=== PATIENT | female | born 1935 | race Caucasian/White ===

== ENCOUNTER 2018-11-14 09:50 | Inpatient (IN) | payer MEDICARE, OTHER, SELFPAY ==
[2018-11-08 13:51] VITALS: BMI 20.7
[2018-11-14] VITALS (14 sets, daily range): BP systolic 63–161; BP diastolic 32–98; PULSE 71–99; RESP 12–16; TEMP 35.8–37; O2SAT 97–100; BMI 20.7
[2018-11-14] MEDS: ACETAMINOPHEN 325 MG TABLET 975 MG PO (10:49)
[2018-11-14] MEDS: PREGABALIN 75 MG CAPSULE PO (10:50)
[2018-11-14] MEDS: CELECOXIB 200 MG CAPSULE PO (10:50)
--- NOTE | 2018-11-14 11:31 | PM.PREOP ---
Pre-operative Note Interval Note History & Physical reviewed/Exam performed by Physician: Yes Changes to H&P: No
[2018-11-14] MEDS: CEFAZOLIN 1 GM VIAL IV (11:45)
--- NOTE | 2018-11-14 12:15 | DI.RAD.S_ITS ---
PROCEDURE: XR PELVIS 1-2V INDICATIONS: Postop left total hip TECHNIQUE: 1 view of the lower pelvis acquired. COMPARISON: None. FINDINGS: Bones: Patient is status post left hip arthroplasty, with hardware components in expected positions. The hip joint appears congruent. The visualized bony structures appear intact. Soft tissues: Overlying postoperative changes are noted. No suspicious soft tissue densities. IMPRESSION: Post left total hip arthroplasty with anatomic left hip alignment. Dictated by: Garett Valdivia M.D. on 11/14/2018 at 16:17 Approved by: Garett Valdivia M.D. on 11/14/2018 at 16:18
--- NOTE | 2018-11-14 12:23 | SUR.OPER ---
Right Lateral on padded OR bed. Gel axillary roll. Arms secured on padded armboard with pillow supporting top arm. Padded hip positioner braces x4 - anterior and posterior chest and pelvis. Additional gel pad used anterior pelvis. Gel pad under bottom leg from knee to foot and secured with tape over sheet.
[2018-11-14] MEDS: BUPIVACAINE 0.25% W/ EPI VIAL 50 ML INJ (12:27)
[2018-11-14] MEDS: TRANEXAMIC ACID 1,000 MG VIAL 1000 MG IV ×2 (12:29→13:00)
[2018-11-14] MEDS: LACTATED RINGERS 1,000 ML 42 ML IV (12:51)
--- NOTE | 2018-11-14 13:24 | PM.OP.1 ---
Operative Date/Time/Diagnoses Date of procedure: 11/14/18 Time of procedure: 13:24 Pre-op diagnosis: Left hip degenerative joint disease Post-op diagnosis: same Procedure & Clinicians Procedure: Left total hip arthroplasty (CPT code 79034 with assistant foreman) Same procedure as scheduled: Yes Indications: Patient is an 83-year-old female with severe left hip DJD. The patient has pain with activities and at rest, limited ambulation and activity tolerance, difficulties with ADLs, and failure of conservative treatment. We have discussed the nature of condition, treatment options, risks and benefits, and patient elects to proceed with total hip arthroplasty and gives informed consent. Surgeon: Thom Villela Inner Tube Tuber Machine Operator: Moi Alonzo Anesthesia Type: General and Spinal Operative Notes Closure Type: primary Specimen(s): none sent Prosthetic devices, grafts, tissues, transplants, or devices: Acetabulum: Feng [employer] Nephew R3 acetabular component size 50 mm Femoral component: Feng [employer]hew Anthology stem size 5 with standard offset Femoral head: 32 mm + 0 cobalt chrome Estimated Blood Loss (mL): 100 Blood products transfused: none Procedure in detail: After satisfaction induction of anesthetic, and administration of IV antibiotics, the patient was positioned in the lateral decubitus position with all bony prominences well padded and pelvic position secured using a hip test preparation tutor positioning device. Left hip and lower extremity prepped and draped in the usual sterile fashion, 1st dose of intravenous tranexamic acid was administered, then a longitudinal incision was created centered over the greater trochanter and carried sharply through the skin and subcutaneous tissues down to the fascia amelia which was divided longitudinally and retracted with a Charnley retractor. External rotators visualize, cut, tagged, and retracted posteriorly, then the capsule was cut in a T-type fashion with the corners tagged and retracted. Hip was dislocated and femoral neck cut made according to preoperative templating. Acetabular retractors then placed, and the acetabular labrum and osteophytes were excised. The acetabulum was then sequentially reamed to 49 mm with an excellent circumferential ream and fit with the trial. The trial component was removed and a permanent size 50 mm Feng and Nephew R3 acetabular component was selected, positioned, and impacted with satisfactory position and fixation achieved. Permanent liner was then inserted with the elevated lip directed posteriorly. Soft tissue then removed off the lateral femoral neck in the lateral neck was entered using a box osteotome. T-handled reamers placed down the canal followed by sequential broaching to 5 with the final broach left in place for trial reduction which demonstrated excellent leg length, range of motion, and stability characteristics with a 32 mm +0 trial ball. The trial and broach were removed, and a permanent size 5 Feng and Nephew Anthology stem was selected and inserted with excellent position and fixation achieved. Another trial reduction yielded the above characteristics so the trial ball was exchanged for a permanent 32 mm +0 cobalt chrome ball. The hip was irrigated and reduced and excellent leg length range of motion and stability characteristics were achieved and maintained. Periarticular tissues were infiltrated with Marcaine. The hip was copiously irrigated, and the capsule repaired with #2 Ethibond, and the piriformis was repaired back to the greater trochanter with the same. Fascia amelia closed with interrupted #1 Ethibond sutures, and the subcutaneous tissues were closed in 2 layers of 0 Vicryl and 2 0 Vicryl. Skin was closed with lazaro and sterile dressings applied. Second dose of tranexamic acid was administered intravenously, and the anesthetic was terminated. Complications: none Condition: stable Disposition: PACU Plan for aftercare: Patient will be admitted to the acute care [facility], and anticipate discharge on postop day 1 or 2 with follow-up in office in 10-14 days. Outpatient physical therapy will be arranged and patient will continue to observe posterior hip precautions. Patient will continue use of postoperative Lovenox for 10 days postop.
--- NOTE | 2018-11-14 13:27 | P.OP_ITS ---
Operative Date/Time/Diagnoses Date of procedure: 11/14/18 Time of procedure: 13:24 Pre-op diagnosis: Left hip degenerative joint disease Post-op diagnosis: same Procedure & Clinicians Procedure: Left total hip arthroplasty (CPT code 62122 with marketing assistant manager) Same procedure as scheduled: Yes Indications: Patient is an 83-year-old female with severe left hip DJD. The patient has pain with activities and at rest, limited ambulation and activity tolerance, difficulties with ADLs, and failure of conservative treatment. We have discussed the nature of condition, treatment options, risks and benefits, and patient elects to proceed with total hip arthroplasty and gives informed consent. Surgeon: Thom Villela Boat Driver: Moi Alonzo Anesthesia Type: General and Spinal Operative Notes Closure Type: primary Specimen(s): none sent Prosthetic devices, grafts, tissues, transplants, or devices: Acetabulum: Feng [employer] Nephew R3 acetabular component size 50 mm Femoral component: Feng [employer] Nephew Anthology stem size 5 with standard offset Femoral head: 32 mm + 0 cobalt chrome Estimated Blood Loss (mL): 100 Blood products transfused: none Procedure in detail: After satisfaction induction of anesthetic, and administration of IV antibiotics, the patient was positioned in the lateral decubitus position with all bony prominences well padded and pelvic position secured using a hip licensed physical therapist positioning device. Left hip and lower extremity prepped and draped in the usual sterile fashion, 1st dose of intravenous tranexamic acid was administered, then a longitudinal incision was created centered over the greater trochanter and carried sharply through the skin and subcutaneous tissues down to the fascia amelia which was divided longitudinally and retracted with a Charnley retractor. External rotators visualize, cut, tagged, and retracted posteriorly, then the capsule was cut in a T-type fashion with the corners tagged and retracted. Hip was dislocated and femoral neck cut made according to preoperative templating. Acetabular retractors then placed, and the acetabular labrum and osteophytes were excised. The acetabulum was then sequentially reamed to 49 mm with an excellent circumferential ream and fit with the trial. The trial component was removed and a permanent size 50 mm Feng and Nephew R3 acetabular component was selected, positioned, and impacted with satisfactory position and fixation achieved. Permanent liner was then inserted with the elevated lip directed posteriorly. Soft tissue then removed off the lateral femoral neck in the lateral neck was entered using a box osteotome. T- handled reamers placed down the canal followed by sequential broaching to 5 with the final broach left in place for trial reduction which demonstrated excellent leg length, range of motion, and stability characteristics with a 32 mm +0 trial ball. The trial and broach were removed, and a permanent size 5 Feng and Nephew Anthology stem was selected and inserted with excellent position and fixation achieved. Another trial reduction yielded the above characteristics so the trial ball was exchanged for a permanent 32 mm +0 cobalt chrome ball. The hip was irrigated and reduced and excellent leg length range of motion and stability characteristics were achieved and maintained. Periarticular tissues were infiltrated with Marcaine. The hip was copiously irrigated, and the capsule repaired with #2 Ethibond, and the piriformis was repaired back to the greater trochanter with the same. Fascia amelia closed with interrupted #1 Ethibond sutures, and the subcutaneous tissues were closed in 2 layers of 0 Vicryl and 2 0 Vicryl. Skin was closed with lazaro and sterile dressings applied. Second dose of tranexamic acid was administered intravenously, and the anesthetic was terminated. Complications: none Condition: stable Disposition: PACU Plan for aftercare: Patient will be admitted to the acute care [facility], and anticipate discharge on postop day 1 or 2 with follow-up in office in 10-14 days. Outpatient physical therapy will be arranged and patient will continue to observe posterior hip precautions. Patient will continue use of postoperative Lovenox for 10 days postop.
--- NOTE | 2018-11-14 13:49 | SUR.PHASEI ---
Awaiting call back from RN who is unavaialble at this time. Pt comfortable altho appears slightly tremulous. She denies being cold or shivery. Spinal dropping slowly.
[2018-11-14] MEDS: LACTATED RINGERS 1,000 ML 125 ML IV ×2 (14:47→23:21)
--- NOTE | 2018-11-14 15:45 | PM.CHAP ---
visit with patient this afternoon. In good spirits after surgery, looking forward to going home soon.
--- NOTE | 2018-11-14 17:18 | PT.IIE ---
Current Diagnoses Unilateral primary osteoarthritis, left hip (11/14/18) Trochanteric bursitis, left hip (11/14/18) Surgery Performed Operation Date: 11/14/18 12:15 Actual Procedures p Total Hip Arthroplasty(Left) - Thom Villela MD Surgical History (Last Updated 11/08/18 @ 14:13 by Tati Christopher RN) Hx of laminectomy (Acute) Hx of tubal ligation (Acute) Status post LASIK surgery of both eyes (Acute) Status post cataract extraction of both eyes with insertion of intraocular lens (Acute) Medical History (Last Updated 11/08/18 @ 14:13 by Tati Christopher RN) IBS (irritable bowel syndrome) (Acute) Cancer of left breast (Acute 11/15/97) GERD (gastroesophageal reflux disease) (Acute) HTN (hypertension) (Acute) Hip bursitis, left (Acute) Humerus fracture (Acute) Migraines (Acute) Osteoarthritis (Acute) PSVT (paroxysmal supraventricular tachycardia) (Acute) Skin cancer (Acute) Thyroid cancer (Acute ~1984) Vaginal pessary present (Acute) Physical Therapy Inpatient Evaluation/Re-Eval M1 PT/OT-IP Prior Functional Status Start: 11/14/18 16:41 Freq: NEEDED Status: Active Protocol: Document 11/14/18 16:00 (Rec: 11/14/18 17:18 [email or web address]) Medical Review Prior Functional Status Medical History Reviewed Yes Communication No deficits noted Mobility and Gait Pt was an independent ambulator at home and community. Pt states she could amb approx 100 feet without a break prior to surgery. She did use shopping cart for support during grocery shop. Activities of Daily Living and IADL's Pt was independent for all ADLs and IADLs. Used shopping cart for support during grocery shop. Social History Household Members spouse Living Arrangements House Number of Floors (Floors) One Floor Number of Stairs To Enter/Railing? no [place]EMAL[place]HA. Has a ramp Home Environment Standard Height Toilet Walk in Shower Ramp Home Equipment Front Wheel Walker Straight Cane Raised Toilet Seat w/Armrests Grab Bars Near Toilet Grab Bars In Shower Employment Status Retired Additional Social History Comment Pt lives with her in a 1 story handicapped accessible home. Pt's is w/c bound and daughter states he was very independent for ADLs who is able to transfer or take a few steps independently. Pt's daughter just moved back to pt's house and will be available to assist as long as pt needed. Pt has a SPC and FWW but never used and she did have difficulty to walk for long distance but she has never fallen. M2 PT-IP Current Condition Start: 11/14/18 16:41 Freq: NEEDED Status: Active Protocol: Document 11/14/18 16:00 (Rec: 11/14/18 17:18 [email or web address]) Physical Therapy Current Condition Current Condition Evaluation Date 11/14/18 Treatment Diagnosis L SHEA (post approach), difficulty in walking Onset Date 11/14/18 Precautions Posterior Hip Precautions No Hip Flexion > 90 degrees No Hip Internal Rotation No Hip Adduction Weight Bearing Status Weight Bearing Status Weight Bear as Tolerated M3 PT-IP Subjective Start: 11/14/18 16:41 Freq: NEEDED Status: Active Protocol: Document 11/14/18 16:00 (Rec: 11/14/18 17:18 [email or web address]) Subjective Physical Therapy Visit Type Type Initial Evaluation Visit Start Time 16:00 Visit Stop Time 16:30 Total Visit Minutes 30 Notes Pt's Mathew and daughter at bedside. Number of UNLOADING CHECKER Visits 0 Physical Therapy Visit Comments Patient Comments I have no pain. Patient Goals To return home with his and daughter. Therapy Pain Assessment Pain When Pain Assessed During Mobility Pain Present Pain Present Denied Pain M4 PT-IP Mobility and Gait Start: 11/14/18 16:41 Freq: NEEDED Status: Active Protocol: Document 11/14/18 16:00 (Rec: 11/14/18 17:18 [email or web address]) PT-Bed Mobility Assessment Supine to Sit Supine to Sit Contact Guard Assistance Head of Bed Elevated Bedrails Scooting Scooting to Edge of Bed Contact Guard Assistance PT-Transfer Assessment Sit to and From Stand Sit to and from Stand Contact Guard Assistance 1 Person Assistance Use of Upper Extremities Equipment Transfer Assistive Device Gait Belt Front Wheeled Walker Transfers Transfer Destination Bed Chair Transfer Technique Stand Step Pivot Transfer Ability Level of Assist Contact Guard Assistance Comments Mobility Comments Pt got up and sat on the left side EOB with CGA and bed rails. Pt then stood up with CGA and FWW. Pt required cues to use stagger stance for sit< > stand to avoid excessive hip flexion. But she was able to perform stand step pivot to bedside chair with CGA as well . Pt did take longer time than usual due to report of scared to put all weight on it . Gait Assessment Gait Gait Assistance Required: Contact Guard Assist Distance (Feet) 15 Able to Maintain Weight Bearing Status Yes During Gait Assistive Devices Assistive Device Gait Belt Front Wheeled Walker Gait Deviations General Gait Pattern Antalgic Decreased Stride Length Decreased Feet Clearance Step-to Gait Factors Limiting Gait Function Factors Limiting Gait Function Decreased Activity Tolerance Decreased Sensation Decreased Strength Limited Range of Motion Pain Poor Balance Poor Safety Awareness Comments Gait Comments Pt amb from EOB to the window and return back to bedside chair. Pt used a step to gait pattern along with L antalgic gait. Pt states Im a bit afraid to put all weight on my LLE since i still feel a bit numb on my L knee. However, pt showed steady gait without signs of LOB/ acute distress. She did need cues to facilitate increase WB on L LE Stair Climbing Assessment Comments Stair Climbing Comments did not attempt PT-Balance Assessment Sitting Balance and Reactions Static Sitting Balance Ability Normal Dynamic Sitting Balance Ability Normal Standing Balance and Reactions Static Standing Balance Ability Good Dynamic Standing Balance Ability Fair M5 PT-IP Objective Assessments Start: 11/14/18 16:41 Freq: NEEDED Status: Active Protocol: Document 11/14/18 16:00 (Rec: 11/14/18 17:18 [email or web address]) Orientation Orientation/Cognition Level of Alertness Alert Orientation Name Age Birthday Month Date Year Day of Week Place Situation Language Function Ability No Deficits Noted Safety Awareness Understands Safety Issues Memory Description No Deficits Noted Gross Range of Motion Upper Extremity ROM Assessment Within Functional Limits Lower Extremity ROM Assessment Left Impaired Strength Upper Extremity Strength Assessment Within Functional Limits Lower Extremity Strength Assessment Left Impaired Comments Strength Comments 3/5 for L hip strength grossly Coordination Assessment Gross Coordination Gross Coordination WNL Sensation Assessment Sensation Gross Sensation Left LE Impaired Light Touch Impaired Proprioception (Position) Impaired Sensation Description Numbness Comments Sensation Comments numbness at L knee Muscle Tone Muscle Tone WNL Yes M6 PT-IP Treatment Start: 11/14/18 16:41 Freq: NEEDED Status: Active Protocol: Document 11/14/18 16:00 (Rec: 11/14/18 17:18 [email or web address]) Physical Therapy Treatment Exercises Exercises Ankle Pumps Gluteal Sets Quad Sets Heel Slides Straight Leg Raises Education Education Provided Precautions Weight Bearing Status Post-Op Packet Safety Other Treatments Other Treatment Performed standing lateral weight shift and TKE M7 PT-IP Assessment and Plan Start: 11/14/18 16:41 Freq: NEEDED Status: Active Protocol: Document 11/14/18 16:00 (Rec: 11/14/18 17:18 [email or web address]) PT Summary Assessment and Plan Potential Rehabilitation Potential Good Status of Condition at Evaluation Evolving Summary Impairments Pain ROM Strength Balance Bed Mobility Transfers Gait Activity Tolerance Progress Towards Goals Progressing Toward Goals Assessment Summary Pt is a pleasant and motivated 83yo female s/p L SHEA (post approach) post op day 1. Pt required cues for post op precautions upon assessment. pt demonstrates decreased stride length, feet clearance, L antalgic gait along with very slow step to pattern. Pt did present a steady gait without signs of buckling, LOB / acute distress. At this point, pt is far from her baseline of mobility even though Pt'supportive daughter is going to be her primary caregiver as long as pt needed . Pt has to reach her rehab goals prior to d/c home with assistance + HH PT/ outpatient PT, otherwise, pt will benefit short term rehab from SNF to improve overall functional mobility. Goals Bed Mobility Goal Standby Assistance Transfer Goal Standby Assistance Front Wheeled Walker Gait Goal Standby Assistance Front Wheel Walker Gait Distance 100 Other Goals amb with FWW with reciprocal step over gait pattern sit to stand from chair /SBA bathroom transfer/ SBA Days to Meet Goals 5 Frequency of Treatment Frequency Of Treatment Twice a Day Treatment Plan Physical Therapy Treatment Plan Bed Mobility Training Transfer Training Gait Training Therapeutic Exercise Balance Retraining Post Op Education Discharge Planning Hot or Cold Pack Other Recommendations and Next Treatment gait training as joe Focus family training for gait and transfer training Recommendations To Nursing Amount of Assist Needed 1 Person Assist Discharge Recommendations PT Discharge Recommendations Home with Assistance Home Health SNF Rehab Outpatient PT Other Discharge Recommendations Pt has to reach her rehab goals prior to d/c home with assistance + HH PT/ outpatient PT, otherwise, pt will benefit short term rehab from SNF to improve overall functional mobility.
[2018-11-14] MEDS: HYDROCODONE/ACET 5/325 TABLET 1 TAB PO ×2 (19:15→23:31)
[2018-11-14] MEDS: CEFAZOLIN 2 GM/100 ML FROZ.PIGGY IV (19:19)
[2018-11-14] MEDS: hydrOXYzine pamoate 25 MG CAPSULE PO (20:30)
[2018-11-14] MEDS: diphenhydrAMINE 25 MG TABLET PO (23:31)
[2018-11-15] MEDS: CEFAZOLIN 2 GM/100 ML FROZ.PIGGY IV (03:29)
[2018-11-15] MEDS: HYDROCODONE/ACET 5/325 TABLET 1 TAB PO ×5 (03:30→20:48)
[2018-11-15] MEDS: hydrOXYzine pamoate 25 MG CAPSULE PO ×5 (03:30→20:49)
[2018-11-15 03:35] VITALS: BP 146/63; PULSE 76; RESP 16; TEMP 36.8; O2SAT 99
[2018-11-15] MEDS: LEVOTHYROXINE 75 MCG TABLET PO (06:36)
[2018-11-15] MEDS: PANTOPRAZOLE 20 MG TABLET PO (06:36)
[2018-11-15] MEDS: LEVOTHYROXINE 100 MCG TABLET PO (06:36)
[2018-11-15 07:14] LABS: Hematocrit 33.1 % (36-46); Hemoglobin 10.9 g/dL (12.0-16.0)
[2018-11-15 08:00] VITALS: BP 149/70; PULSE 88; RESP 16; TEMP 37.3; O2SAT 98
--- NOTE | 2018-11-15 08:33 | P.PN_ITS ---
Subjective Date Patient Seen: 11/15/18 Time Patient Seen: 08:31 Interval history: Hospital day 2, postop day 1 following left total hip arthroplasty by Dr. Villela. Patient states she did not get much sleep last night. Notes some increased discomfort today. Been getting [place] 5/325 mg for p ain. She is on Lovenox. PT is suggesting home health versus SNF on discharge. Patient does have help at home. She is scheduled to go to [facility] in [place]. She has a [facility] patient. Exam Vital Signs (past 8 hours): - 11/15/18 03:35 11/15/18 08:00 Temperature 98.3 F 99.2 F Pulse Rate 76 88 Respiratory Rate 16 16 Blood Pressure 146/63 H 149/70 H Pulse Oximetry 99 98 Oxygen Delivery Method Room Air Narrative Exam Narrative: Alert, oriented no acute distress resting in bed. Legs. Bulky dressing to left hip is dry without drainage or inflammation. No calf pain or swelling. Pulses symmetrical. Objective Labs Result Diagrams: 11/15/18 06:25 Labs: Laboratory Results - last 24 hr 11/15/18 06:25 Hgb 10.9 L Hct 33.1 L Assessment & Plan Post-op Postoperative Procedures Operation Date: 11/14/18 12:15 Actual Procedures Side Surgeon p Total Hip Arthroplasty Left Thom Villela MD Plan: Patient will work with PT more today. Observe for improvement in pain. Anticipate possible discharge home tomorrow if stable by PT. She may need either home health or SNF if she remains unstable. Quality VTE Deep Vein Thrombosis/Pulmonary Embolism Present on Admission: No
[2018-11-15] MEDS: ATENOLOL 25 MG TABLET PO (08:55)
[2018-11-15] MEDS: ASPIRIN EC 81 MG TABLET PO (08:55)
[2018-11-15] MEDS: SODIUM CHLORIDE 0.9% FLUSH 10 ML IV ×2 (08:55→20:49)
[2018-11-15] MEDS: ENOXAPARIN 40 MG/0.4 ML SYRINGE SUBCUT (08:55)
[2018-11-15] MEDS: dilTIAZem CD 180 MG CAP PO (08:55)
[2018-11-15] MEDS: LISINOPRIL 10 MG TABLET PO (09:15)
[2018-11-15 12:25] VITALS: BP 128/58; PULSE 82; RESP 16; TEMP 37.2; O2SAT 97
--- NOTE | 2018-11-15 12:45 | PT.IPTN ---
Current Diagnoses Unilateral primary osteoarthritis, left hip (11/14/18) Trochanteric bursitis, left hip (11/14/18) Surgery Performed Operation Date: 11/14/18 12:15 Actual Procedures p Total Hip Arthroplasty(Left) - Thom Villela MD Physical Therapy Treatment Note M2 PT-IP Current Condition Start: 11/14/18 16:41 Freq: NEEDED Status: Active Protocol: Document 11/14/18 16:00 HH (Rec: 11/14/18 17:18 [id number]) Physical Therapy Current Condition Current Condition Evaluation Date 11/14/18 Treatment Diagnosis L SHEA (post approach), difficulty in walking Onset Date 11/14/18 Precautions Posterior Hip Precautions No Hip Flexion > 90 degrees No Hip Internal Rotation No Hip Adduction Weight Bearing Status Weight Bearing Status Weight Bear as Tolerated M3 PT-IP Subjective Start: 11/14/18 16:41 Freq: NEEDED Status: Active Protocol: Document 11/15/18 10:50 CLB (Rec: 11/15/18 12:45 CLB [email or web address]) Subjective Physical Therapy Visit Type Type Treatment Note Visit Start Time 10:50 Visit Stop Time 11:17 Total Visit Minutes 27 Number of SUPERVISOR MENDING Visits 1 Physical Therapy Visit Comments Patient Comments Pt willing to get up out of bed, daughter and present for treatment. Patient Goals To return home with his and daughter. Therapy Pain Assessment Pain When Pain Assessed During Mobility Pain Present Pain Present Pain Reported Location Left Hip Intensity 8 Scale Used Numeric (1 - 10) Description Radiating Pain Behaviors Facial Grimacing Guarding Wincing Pain Management Techniques Modification of Treatment Re-positioning Timing of Activity with Medications M4 PT-IP Mobility and Gait Start: 11/14/18 16:41 Freq: NEEDED Status: Active Protocol: Document 11/15/18 10:50 CLB (Rec: 11/15/18 12:45 CLB [email or web address]) PT-Bed Mobility Assessment Supine to Sit Supine to Sit Minimal Assistance 1 Person Assistance Head of Bed Elevated Bedrails Scooting Scooting to Edge of Bed Minimal Assistance PT-Transfer Assessment Sit to and From Stand Sit to and from Stand Contact Guard Assistance 1 Person Assistance Use of Upper Extremities Equipment Transfer Assistive Device Gait Belt Front Wheeled Walker Transfers Transfer Destination Bed Transfer Ability Level of Assist Minimal Assistance 1 Person Assistance Comments Mobility Comments Pt required Min A with LLE and scooting to EOB needing cues for sequencing to follow posterior hip precautions. Gait Assessment Gait Gait Assistance Required: Contact Guard Assist Distance (Feet) 5 Able to Maintain Weight Bearing Status Yes During Gait Assistive Devices Assistive Device Gait Belt Front Wheeled Walker Gait Deviations General Gait Pattern Antalgic Decreased Stride Length Decreased Feet Clearance Step-to Gait Factors Limiting Gait Function Factors Limiting Gait Function Decreased Activity Tolerance Decreased Sensation Decreased Strength Limited Range of Motion Pain Poor Balance Poor Safety Awareness Comments Gait Comments Pt with increased pain with WB took steps forward but stated her pain was too high and she needed to go back to bed. Stair Climbing Assessment Comments Stair Climbing Comments did not attempt M5 PT-IP Objective Assessments Start: 11/14/18 16:41 Freq: NEEDED Status: Active Protocol: Document 11/14/18 16:00 (Rec: 11/14/18 17:18 [email or web address]) Orientation Orientation/Cognition Level of Alertness Alert Orientation Name Age Birthday Month Date Year Day of Week Place Situation Language Function Ability No Deficits Noted Safety Awareness Understands Safety Issues Memory Description No Deficits Noted Gross Range of Motion Upper Extremity ROM Assessment Within Functional Limits Lower Extremity ROM Assessment Left Impaired Strength Upper Extremity Strength Assessment Within Functional Limits Lower Extremity Strength Assessment Left Impaired Comments Strength Comments 3/5 for L hip strength grossly Coordination Assessment Gross Coordination Gross Coordination WNL Sensation Assessment Sensation Gross Sensation Left LE Impaired Light Touch Impaired Proprioception (Position) Impaired Sensation Description Numbness Comments Sensation Comments numbness at L knee Muscle Tone Muscle Tone WNL Yes M6 PT-IP Treatment Start: 11/14/18 16:41 Freq: NEEDED Status: Active Protocol: Document 11/15/18 10:50 CLB (Rec: 11/15/18 12:45 CLB [email or web address]) Physical Therapy Treatment Exercises Exercises Ankle Pumps Gluteal Sets Quad Sets Heel Slides Straight Leg Raises Education Education Provided Precautions Weight Bearing Status Post-Op Packet Safety M7 PT-IP Assessment and Plan Start: 11/14/18 16:41 Freq: NEEDED Status: Active Protocol: Document 11/15/18 10:50 CLB (Rec: 11/15/18 12:45 CLB [email or web address]) PT Summary Assessment and Plan Summary Impairments Pain ROM Strength Balance Bed Mobility Transfers Gait Activity Tolerance Progress Towards Goals Slow Progress due to Pain Assessment Summary Pt with increased pain today was unable to ambulate and required Min A to get to EOB. Pt recalled 1/3 precautions and required cues to sequence supine to sitting to EOB. Daughter and were present for tx and CG training was conducted. Depending on progression pt may require SNF rehab before returning home to improve strength and increase endurance. Goals Bed Mobility Goal Standby Assistance Transfer Goal Standby Assistance Front Wheeled Walker Gait Goal Standby Assistance Front Wheel Walker Gait Distance 100 Other Goals amb with FWW with reciprocal step over gait pattern sit to stand from chair /SBA bathroom transfer/ SBA Days to Meet Goals 5 Frequency of Treatment Frequency Of Treatment Twice a Day Treatment Plan Physical Therapy Treatment Plan Bed Mobility Training Transfer Training Gait Training Therapeutic Exercise Balance Retraining Post Op Education Discharge Planning Hot or Cold Pack Other Recommendations and Next Treatment gait training as joe Focus family training for gait and transfer training Recommendations To Nursing Amount of Assist Needed 1 Person Assist Discharge Recommendations PT Discharge Recommendations Home with Assistance Home Health SNF Rehab Outpatient PT Other Discharge Recommendations Pt has to reach her rehab goals prior to d/c home with assistance + PT/ outpatient PT, otherwise, pt will benefit short term rehab from SNF to improve overall functional mobility.
--- NOTE | 2018-11-15 13:05 | CM.DPC ---
Discharge Planning/Care Management DCP: assessment: case received, EMR reviewed and met with pt. Introduced self and role. Pt is an 83 year old female who admitted yesterday for a planned SHEA. Surgeon: Dr. Villela Payer: Medicare and [facility] INPT admission status: confirmed by UR ALEXANDRE Mejia. Pt is post op day one. She is working with PT. Ortho PA Wilmar confirms OT order is not needed. Pt is aware that the APPLICATION MANAGER today is recommending: outpt vs HH vs snf but she says she has outpt PT all set up in [place], her home is well set up with a ramp and other things inside the one level home that make it safe for her and for her (who does use a w/c). She is aware that she has Medicare coverage for other options but says she very much wants the home option. Her daughter will be her primary assist. She is hopeful that if she is not ready for home setting tomorrow the orthopedic team will allow her another day to achieve this goal. DCP team will be following. CM Discharge Assessment Start: 11/15/18 13:02 Freq: Status: Active Protocol: Document 11/15/18 13:03 ITV (Rec: 11/15/18 13:05 ITV [id number]) Discharge Planning Assessment Advance Directives? Yes Advance Directives on File No History Provided By Patient Medical Record Prior Living Arrangements House Household Members spouse Independent with ADL's Yes Is patient alert and oriented? Yes Caregiver for Another No Whiteboard Updated in Patient Room with Yes name and ext. # of Civil Transportation Engineer Review Status In Process Next Review Type Continued Stay Review Pre-Anesthesia Assessment Start: 11/08/18 13:51 Freq: Status: Complete Protocol: Document 11/08/18 13:51 CAB (Rec: 11/08/18 14:27 CAB [id number]) Pre-Anesthesia Assessment Patient Also Known As (AKA) Devi Patient Information Reviewed Via Phone Assessment Assessment Completed With Patient Diagnostic Results BMP/CMP CBC EKG Primary Care Provider Floresita Hatfield Seen Specialist in Last 12 Months Yes Specialist Seen Chain Maker Orthopedist Primary Language [place] Family Consultant Required No Height 165.1 cm Weight 56.699 kg Body Mass Index (BMI) 20.7 Hearing Ability Normal Visual Assist Glasses Dentition Type Teeth, Natural Present Barriers to Learning None Other Aids No Hx Anesthesia Reactions No Hx Family Anesthesia Reaction No Hx Malignant Hyperthermia No Hx Blood Transfusions No Anesthesia Review Requested No Tallow Maker No alcohol intake current alcohol intake frequency 0-2 drinks per day Smoking Status Never smoker Substance Use Type does not use Pain Present Pain Reported Musculoskeletal Symptoms Difficulty Walking Joint Pain History of Falling (Recent or History of No ) Patient is completely paralyzed or No completely immobile Prosthesis or Orthotic Device Cane Mental Status Oriented to own ability Is patient on oxygen? No Does patient have SHOEMAKER/SOB No Hx Sleep Apnea No Currently Taking a Beta Shaila Yes: Atenolol Can You Climb a Flight of Stairs Without Yes SOB Hx Chest Pain No Hx SOB No Hx Syncope or Dizziness No Anti-Coagulant Therapy No Has a Junior Mechanical Engineer No Cardiac Testing No Hx Pacemaker/ICD No Pacemaker Rep Required? No Cardiac Clearance Received Not Applicable Diet Type At Home Regular dysphagia No Urinary Catheter Present No Hx Urinary Self Catheterization No Diabetes No Patient No Lactating No Hx Drug Resistant Organism No Presence of External or Internal Medical No Devices Have you traveled outside the [facility] in the last 30 days? Marital Status Lives With spouse Prior Living Arrangements House Number of Floors (Floors) One Floor Number of Stairs To Enter/Railing? none Support System Child/Children Spouse Does the Patient Have Assistance After Yes Surgery Patient Discharge Plan Description Return Home Comment Pt advised 23 hour length of stay per surgeon's office Feels Safe in Current Environment Yes Been Physically Hurt or Threatened By a No Person in Current Environment Do you have thoughts of harming yourself None or others? Are you currently considering suicide? No Do you have a plan to hurt yourself or No Plan others? Do You Have Any Spiritual Beliefs That No May Affect Your HC Choices? Do You Have Any Cultural Practices That No May Affect Your HC Choices? Spiritual Referral In-House Rotary Driller Helper Comment [place] Who Can We Speak to About Patient's Care Family, friends Identifying Code for Release of Patient Declines to issue Information Health Care Proxy/Next of Kin Mathew () Health Care Proxy or [phone] Emergency Contact Name Lexy (daughter) Emergency Contact Advance Directives? Yes Advance Directives on File No Requested Patient Bring Advanced Yes Directives DOS Power of Char Filter Tank Tender Yes Power of Char Filter Tank Tender Name Mathew () Power of Char Filter Tank Tender or [phone] PAC Instructions Do not shave/clip surgical site Durable medical equipment Medications to take/avoid Nasal antibiotic No ETOH/petroleum product on skin DOS NPO Post-op transportation Pre-surgical wash Sturdy shoes/comfortable clothes Do not bring valuables and remove jewelry
--- NOTE | 2018-11-15 15:13 | PT.IPTN ---
Current Diagnoses Unilateral primary osteoarthritis, left hip (11/14/18) Trochanteric bursitis, left hip (11/14/18) Surgery Performed Operation Date: 11/14/18 12:15 Actual Procedures p Total Hip Arthroplasty(Left) - Thom Villela MD Physical Therapy Treatment Note M2 PT-IP Current Condition Start: 11/14/18 16:41 Freq: NEEDED Status: Active Protocol: Document 11/14/18 16:00 HH (Rec: 11/14/18 17:18 [id number]) Physical Therapy Current Condition Current Condition Evaluation Date 11/14/18 Treatment Diagnosis L SHEA (post approach), difficulty in walking Onset Date 11/14/18 Precautions Posterior Hip Precautions No Hip Flexion > 90 degrees No Hip Internal Rotation No Hip Adduction Weight Bearing Status Weight Bearing Status Weight Bear as Tolerated M3 PT-IP Subjective Start: 11/14/18 16:41 Freq: NEEDED Status: Active Protocol: Document 11/15/18 13:50 CLB (Rec: 11/15/18 15:13 CLB [id number]) Subjective Physical Therapy Visit Type Type Treatment Note Visit Start Time 13:50 Visit Stop Time 14:15 Total Visit Minutes 25 Number of DEPUTY ASSESSOR Visits 2 Physical Therapy Visit Comments Patient Comments Pt willing to get up out of bed, daughter and present for treatment. Patient Goals To return home with his and daughter. Therapy Pain Assessment Pain When Pain Assessed During Mobility Pain Present Pain Present Pain Reported Location Left Hip Intensity 8 Scale Used Numeric (1 - 10) Pain Management Techniques Modification of Treatment Re-positioning Timing of Activity with Medications M4 PT-IP Mobility and Gait Start: 11/14/18 16:41 Freq: NEEDED Status: Active Protocol: Document 11/15/18 13:50 CLB (Rec: 11/15/18 15:13 CLB [id number]) PT-Transfer Assessment Sit to and From Stand Sit to and from Stand Minimal Assistance 1 Person Assistance Use of Upper Extremities Equipment Transfer Assistive Device Gait Belt Front Wheeled Walker Transfer Ability Level of Assist Minimal Assistance 1 Person Assistance Comments Mobility Comments Pt required Min A to full stand from chair. Gait Assessment Gait Gait Assistance Required: Contact Guard Assist Distance (Feet) 20 Able to Maintain Weight Bearing Status Yes During Gait Assistive Devices Assistive Device Gait Belt Front Wheeled Walker Gait Deviations General Gait Pattern Antalgic Decreased Stride Length Decreased Feet Clearance Step-to Gait Factors Limiting Gait Function Factors Limiting Gait Function Decreased Activity Tolerance Decreased Sensation Decreased Strength Limited Range of Motion Pain Poor Balance Poor Safety Awareness Comments Gait Comments Pt ambulated with chair follow from chair near window to door and back. Pt demontrates increased use of UE during gait. Stair Climbing Assessment Comments Stair Climbing Comments did not attempt M5 PT-IP Objective Assessments Start: 11/14/18 16:41 Freq: NEEDED Status: Active Protocol: Document 11/14/18 16:00 (Rec: 11/14/18 17:18 [email or web address]) Orientation Orientation/Cognition Level of Alertness Alert Orientation Name Age Birthday Month Date Year Day of Week Place Situation Language Function Ability No Deficits Noted Safety Awareness Understands Safety Issues Memory Description No Deficits Noted Gross Range of Motion Upper Extremity ROM Assessment Within Functional Limits Lower Extremity ROM Assessment Left Impaired Strength Upper Extremity Strength Assessment Within Functional Limits Lower Extremity Strength Assessment Left Impaired Comments Strength Comments 3/5 for L hip strength grossly Coordination Assessment Gross Coordination Gross Coordination WNL Sensation Assessment Sensation Gross Sensation Left LE Impaired Light Touch Impaired Proprioception (Position) Impaired Sensation Description Numbness Comments Sensation Comments numbness at L knee Muscle Tone Muscle Tone WNL Yes M6 PT-IP Treatment Start: 11/14/18 16:41 Freq: NEEDED Status: Active Protocol: Document 11/15/18 13:50 CLB (Rec: 11/15/18 15:13 CLB [id number]) Physical Therapy Treatment Exercises Exercises Gluteal Sets Quad Sets Heel Slides Supine Hip Abduction Education Education Provided Precautions Weight Bearing Status Post-Op Packet Safety M7 PT-IP Assessment and Plan Start: 11/14/18 16:41 Freq: NEEDED Status: Active Protocol: Document 11/15/18 13:50 CLB (Rec: 11/15/18 15:13 CLB [id number]) PT Summary Assessment and Plan Summary Impairments Pain ROM Strength Balance Bed Mobility Transfers Gait Activity Tolerance Progress Towards Goals Slow Progress due to Pain Assessment Summary Pt required increased assist with sit-stand from chair vs bed. Pt needs assist scooting back in chair using draw sheet . Pt only able to recall 1/3 precautions and needs cues for leg out and sequencing turns. Pt daughter and present for tx. Goals Bed Mobility Goal Standby Assistance Transfer Goal Standby Assistance Front Wheeled Walker Gait Goal Standby Assistance Front Wheel Walker Gait Distance 100 Other Goals amb with FWW with reciprocal step over gait pattern sit to stand from chair /SBA bathroom transfer/ SBA Days to Meet Goals 5 Frequency of Treatment Frequency Of Treatment Twice a Day Treatment Plan Physical Therapy Treatment Plan Bed Mobility Training Transfer Training Gait Training Therapeutic Exercise Balance Retraining Post Op Education Discharge Planning Hot or Cold Pack Other Recommendations and Next Treatment gait training as joe Focus family training for gait and transfer training Recommendations To Nursing Amount of Assist Needed 1 Person Assist Discharge Recommendations PT Discharge Recommendations Home with Assistance Home Health SNF Rehab Outpatient PT Other Discharge Recommendations Pt has to reach her rehab goals prior to d/c home with assistance + PT/ outpatient PT, otherwise, pt will benefit short term rehab from SNF to improve overall functional mobility.
[2018-11-15 16:00] VITALS: BP 113/50; PULSE 82; RESP 16; TEMP 37.1; O2SAT 99
[2018-11-15 20:24] VITALS: BP 117/55; PULSE 88; RESP 16; TEMP 36.9; O2SAT 100
[2018-11-15] MEDS: diphenhydrAMINE 25 MG TABLET PO (20:49)
[2018-11-15 23:50] VITALS: BP 134/70; PULSE 83; RESP 18; TEMP 37.2; O2SAT 98
[2018-11-16 03:01] VITALS: BP 147/60; PULSE 84; RESP 19; TEMP 37.4; O2SAT 98
[2018-11-16] MEDS: HYDROCODONE/ACET 5/325 TABLET 1 TAB PO ×4 (03:52→17:35)
[2018-11-16] MEDS: hydrOXYzine pamoate 25 MG CAPSULE PO ×4 (03:52→19:14)
[2018-11-16] MEDS: LEVOTHYROXINE 100 MCG TABLET PO (06:08)
[2018-11-16] MEDS: LEVOTHYROXINE 75 MCG TABLET PO (06:08)
[2018-11-16 08:11] VITALS: BP 125/63; PULSE 79; RESP 16; TEMP 37.2; O2SAT 97
--- NOTE | 2018-11-16 08:25 | PM.PNPO.1 ---
Subjective Date Patient Seen: 11/16/18 Time Patient Seen: 08:26 Interval history: Hospital day 3, postop day 2 following left total hip arthroplasty. Patient is progressing slowly with PT. Continues to be cues. PT feels the patient needs more therapy before going home or go to SNF. Patient does not want to go to SNF. Pain controlled with [place] 5/325 mg. Exam Vital Signs (past 8 hours): - 11/16/18 03:01 11/16/18 08:11 Temperature 99.3 F 99.0 F Pulse Rate 84 79 Respiratory Rate 19 16 Blood Pressure 147/60 H 125/63 Pulse Oximetry 98 97 Oxygen Delivery Method Room Air Oxygen Flow Rate 0 Narrative Exam Narrative: Alert, oriented no acute distress resting in bed. Legs. Bulky dressing to left hip is dry without drainage or inflammation. No calf pain or swelling. Pulses symmetrical. Objective Labs Result Diagrams: 11/15/18 06:25 Assessment & Plan Post-op Postoperative Procedures Operation Date: 11/14/18 12:15 Actual Procedures Side Surgeon p Total Hip Arthroplasty Left Thom Villela MD Plan: Will have patient states today to work with physical therapy. Hopefully she will advance enough where she would be able to go home. Will change the dressing to CovRsite dressing. Quality VTE Deep Vein Thrombosis/Pulmonary Embolism Present on Admission: No
[2018-11-16] MEDS: LISINOPRIL 10 MG TABLET PO (08:57)
[2018-11-16] MEDS: ATENOLOL 25 MG TABLET PO (08:58)
[2018-11-16] MEDS: dilTIAZem CD 180 MG CAP PO (08:58)
[2018-11-16] MEDS: ASPIRIN EC 81 MG TABLET PO (08:58)
[2018-11-16] MEDS: PANTOPRAZOLE 20 MG TABLET PO (08:58)
[2018-11-16] MEDS: ENOXAPARIN 40 MG/0.4 ML SYRINGE SUBCUT (08:58)
[2018-11-16] MEDS: SODIUM CHLORIDE 0.9% FLUSH 10 ML IV ×2 (11:08→20:32)
[2018-11-16 11:37] VITALS: BP 115/49; PULSE 81; RESP 16; TEMP 37; O2SAT 96
--- NOTE | 2018-11-16 11:40 | CM.DPC ---
DCP Cont: Met with patient in her room. Discussed discharge planning, for physical therapy team is thinking that she may need some skilled rehab. Patient imelda husain, lives with her on [facility] who is debilitated, in a wheel-chair. She stated that her home is set up for handi-cap individuals. Has had outpatient physical therapy already set up. Patient re-emphasized that she does not want to go to skilled for rehab. Has a daughter named Lexy, who will be staying with her and helping out. Asked her if she may want home health, if it is difficult to get out to outpatient, and she stated, this may be a good option. She stated that when her had home health, they used [facility], and was pleased with them. Stated that this could be an option for her, depending on what orthopedist stated. Went ahead and called [facility], and spoke to Etta. Stated that they have a pretty quick turn around time. P: DCP to continue to assess. May be able to pursue home health. If this is the plan, will call Etta at [facility] in the morning, and will set up. Amber Bowling, ALEXANDRE/Violin Repairer
--- NOTE | 2018-11-16 11:46 | PT.IPTN ---
Current Diagnoses Unilateral primary osteoarthritis, left hip (11/14/18) Trochanteric bursitis, left hip (11/14/18) Surgery Performed Operation Date: 11/14/18 12:15 Actual Procedures p Total Hip Arthroplasty(Left) - Thom Villela MD Physical Therapy Treatment Note M2 PT-IP Current Condition Start: 11/14/18 16:41 Freq: NEEDED Status: Active Protocol: Document 11/14/18 16:00 (Rec: 11/14/18 17:18 [email or web address]) Physical Therapy Current Condition Current Condition Evaluation Date 11/14/18 Treatment Diagnosis L SHEA (post approach), difficulty in walking Onset Date 11/14/18 Precautions Posterior Hip Precautions No Hip Flexion > 90 degrees No Hip Internal Rotation No Hip Adduction Weight Bearing Status Weight Bearing Status Weight Bear as Tolerated M3 PT-IP Subjective Start: 11/14/18 16:41 Freq: NEEDED Status: Active Protocol: Document 11/16/18 09:45 (Rec: 11/16/18 11:46 [email or web address]) Subjective Physical Therapy Visit Type Type Treatment Note Visit Start Time 09:45 Visit Stop Time 10:30 Total Visit Minutes 45 Number of SALAD CHEF Visits 3 Physical Therapy Visit Comments Patient Comments I feel a lot better today. I got up on to the chair this am with nursing staff. Therapy Pain Assessment Pain When Pain Assessed During Mobility Pain Present Pain Present Pain Reported M4 PT-IP Mobility and Gait Start: 11/14/18 16:41 Freq: NEEDED Status: Active Protocol: Document 11/16/18 09:45 (Rec: 11/16/18 11:46 [email or web address]) PT-Bed Mobility Assessment Supine to Sit Supine to Sit Minimal Assistance 1 Person Assistance Head of Bed Elevated Bedrails Scooting Scooting to Edge of Bed Minimal Assistance PT-Transfer Assessment Sit to and From Stand Sit to and from Stand Contact Guard Assistance Use of Upper Extremities Equipment Transfer Assistive Device Gait Belt Front Wheeled Walker Transfers Transfer Destination Bed Chair Transfer Technique Stand Step Pivot Transfer Ability Level of Assist Contact Guard Assistance Use of Upper Extremities Comments Mobility Comments Pt requried min A to pivot her L LE towards EOB, but CGA only for sit to stand and chair transfer. Gait Assessment Gait Gait Assistance Required: Contact Guard Assist Distance (Feet) 90 Able to Maintain Weight Bearing Status Yes During Gait Assistive Devices Assistive Device Gait Belt Front Wheeled Walker Gait Deviations General Gait Pattern Antalgic Decreased Stride Length Decreased Feet Clearance Factors Limiting Gait Function Factors Limiting Gait Function Decreased Activity Tolerance Decreased Sensation Decreased Strength Limited Range of Motion Pain Poor Balance Poor Safety Awareness Comments Gait Comments Pt amb with chair follow from chair to odessa the returned to commode. Pt BP went from 125/63 in supine to 104/53 for first amb trial. Pt denies pain or discomfort. Her BP went back to 114/48 after 8 mins and then ambulated to hallway with chair follow. She was able to use slight step throught pattern today and increased WB on L hip. She did c/o slight UE fatigue after amb. Stair Climbing Assessment Comments Stair Climbing Comments did not attempt M5 PT-IP Objective Assessments Start: 11/14/18 16:41 Freq: NEEDED Status: Active Protocol: Document 11/14/18 16:00 (Rec: 11/14/18 17:18 [email or web address]) Orientation Orientation/Cognition Level of Alertness Alert Orientation Name Age Birthday Month Date Year Day of Week Place Situation Language Function Ability No Deficits Noted Safety Awareness Understands Safety Issues Memory Description No Deficits Noted Gross Range of Motion Upper Extremity ROM Assessment Within Functional Limits Lower Extremity ROM Assessment Left Impaired Strength Upper Extremity Strength Assessment Within Functional Limits Lower Extremity Strength Assessment Left Impaired Comments Strength Comments 3/5 for L hip strength grossly Coordination Assessment Gross Coordination Gross Coordination WNL Sensation Assessment Sensation Gross Sensation Left LE Impaired Light Touch Impaired Proprioception (Position) Impaired Sensation Description Numbness Comments Sensation Comments numbness at L knee Muscle Tone Muscle Tone WNL Yes M6 PT-IP Treatment Start: 11/14/18 16:41 Freq: NEEDED Status: Active Protocol: Document 11/16/18 09:45 (Rec: 11/16/18 11:46 [email or web address]) Physical Therapy Treatment Exercises Exercises Gluteal Sets Quad Sets Heel Slides Supine Hip Abduction Education Education Provided Precautions Weight Bearing Status Post-Op Packet Safety M7 PT-IP Assessment and Plan Start: 11/14/18 16:41 Freq: NEEDED Status: Active Protocol: Document 11/16/18 09:45 (Rec: 11/16/18 11:46 [email or web address]) PT Summary Assessment and Plan Summary Impairments Pain ROM Strength Balance Bed Mobility Transfers Gait Activity Tolerance Progress Towards Goals Slow Progress due to Pain Assessment Summary Pt showed significant improvements today with amb distance, along with less assistance. Pt's BP went down to 100s/50s for her first amb trial possibly due to prolonged bedrest, but she was able recover and maintain at 110s/50s after. Pt states she does not want to be d/c to SNF . Recommended pt to cont to work with PT and nursing staff closely to reach her rehab goals prior to d/c home with her daughter's assistance. At this point, pt will be more likely to benefit from Home health if pt was able to increase her mobility. Goals Bed Mobility Goal Standby Assistance Transfer Goal Standby Assistance Front Wheeled Walker Gait Goal Standby Assistance Front Wheel Walker Gait Distance 100 Other Goals amb with FWW with reciprocal step over gait pattern sit to stand from chair /SBA bathroom transfer/ SBA Days to Meet Goals 5 Frequency of Treatment Frequency Of Treatment Twice a Day Treatment Plan Physical Therapy Treatment Plan Bed Mobility Training Transfer Training Gait Training Therapeutic Exercise Balance Retraining Post Op Education Discharge Planning Hot or Cold Pack Other Recommendations and Next Treatment gait training as joe Focus family training for gait and transfer training Recommendations To Nursing Amount of Assist Needed 1 Person Assist Discharge Recommendations PT Discharge Recommendations Home with Assistance Home Health Other Discharge Recommendations Pt has to reach her rehab goals prior to d/c home with assistance + PT/ outpatient PT, otherwise, pt will benefit short term rehab from SNF to improve overall functional mobility.
--- NOTE | 2018-11-16 15:04 | PT.IPTN ---
Current Diagnoses Unilateral primary osteoarthritis, left hip (11/14/18) Trochanteric bursitis, left hip (11/14/18) Surgery Performed Operation Date: 11/14/18 12:15 Actual Procedures p Total Hip Arthroplasty(Left) - Thom Villela MD Physical Therapy Treatment Note M2 PT-IP Current Condition Start: 11/14/18 16:41 Freq: NEEDED Status: Active Protocol: Document 11/14/18 16:00 HH (Rec: 11/14/18 17:18 [email or web address]) Physical Therapy Current Condition Current Condition Evaluation Date 11/14/18 Treatment Diagnosis L SHEA (post approach), difficulty in walking Onset Date 11/14/18 Precautions Posterior Hip Precautions No Hip Flexion > 90 degrees No Hip Internal Rotation No Hip Adduction Weight Bearing Status Weight Bearing Status Weight Bear as Tolerated M3 PT-IP Subjective Start: 11/14/18 16:41 Freq: NEEDED Status: Active Protocol: Document 11/16/18 14:50 GGD (Rec: 11/16/18 15:03 GGD [id number]) Subjective Physical Therapy Visit Type Type Treatment Note Visit Start Time 14:20 Visit Stop Time 14:50 Total Visit Minutes 30 Number of LEHR OPERATOR Visits 1 Physical Therapy Visit Comments Patient Comments PT state states she hopes to go home tomorrow. Therapy Pain Assessment Pain When Pain Assessed At Rest Pain Present Pain Present Denied Pain M4 PT-IP Mobility and Gait Start: 11/14/18 16:41 Freq: NEEDED Status: Active Protocol: Document 11/16/18 14:50 GGD (Rec: 11/16/18 15:03 GGD [id number]) PT-Bed Mobility Assessment Supine to Sit Supine to Sit Minimal Assistance 1 Person Assistance Head of Bed Elevated Bedrails Sit to Supine Sit to Supine Standby Assistance Head of Bed Elevated Bedrails Scooting Scooting to Edge of Bed Standby Assistance PT-Transfer Assessment Sit to and From Stand Sit to and from Stand Contact Guard Assistance Use of Upper Extremities Equipment Transfer Assistive Device Gait Belt Front Wheeled Walker Orthotic/Prosthetic Devices or Brace: No Transfers Transfer Destination Bed Transfer Ability Level of Assist Contact Guard Assistance Use of Upper Extremities Gait Assessment Gait Gait Assistance Required: Contact Guard Assist Distance (Feet) 220 Able to Maintain Weight Bearing Status Yes During Gait Assistive Devices Assistive Device Gait Belt Front Wheeled Walker Gait Deviations General Gait Pattern Antalgic Decreased Stride Length Decreased Feet Clearance Factors Limiting Gait Function Factors Limiting Gait Function Decreased Activity Tolerance Decreased Sensation Decreased Strength Limited Range of Motion Pain Poor Balance Poor Safety Awareness Comments Gait Comments Pt need min cues for gait pattern M5 PT-IP Objective Assessments Start: 11/14/18 16:41 Freq: NEEDED Status: Active Protocol: Document 11/14/18 16:00 HH (Rec: 11/14/18 17:18 [email or web address]) Orientation Orientation/Cognition Level of Alertness Alert Orientation Name Age Birthday Month Date Year Day of Week Place Situation Language Function Ability No Deficits Noted Safety Awareness Understands Safety Issues Memory Description No Deficits Noted Gross Range of Motion Upper Extremity ROM Assessment Within Functional Limits Lower Extremity ROM Assessment Left Impaired Strength Upper Extremity Strength Assessment Within Functional Limits Lower Extremity Strength Assessment Left Impaired Comments Strength Comments 3/5 for L hip strength grossly Coordination Assessment Gross Coordination Gross Coordination WNL Sensation Assessment Sensation Gross Sensation Left LE Impaired Light Touch Impaired Proprioception (Position) Impaired Sensation Description Numbness Comments Sensation Comments numbness at L knee Muscle Tone Muscle Tone WNL Yes M6 PT-IP Treatment Start: 11/14/18 16:41 Freq: NEEDED Status: Active Protocol: Document 11/16/18 14:50 GGD (Rec: 11/16/18 15:03 GGD [id number]) Physical Therapy Treatment Exercises Exercises Gluteal Sets Quad Sets Heel Slides Supine Hip Abduction Education Education Provided Precautions Safety M7 PT-IP Assessment and Plan Start: 11/14/18 16:41 Freq: NEEDED Status: Active Protocol: Document 11/16/18 14:50 GGD (Rec: 11/16/18 15:03 GGD [id number]) PT Summary Assessment and Plan Summary Assessment Summary Pt improving slowly with mobility. She was able to progress gait distance. She need cues for left LE assist with gait belt. She does have assistance at home. She is safe for home D/C when medically stable. Frequency of Treatment Frequency Of Treatment Twice a Day Treatment Plan Physical Therapy Treatment Plan Bed Mobility Training Transfer Training Gait Training Therapeutic Exercise Balance Retraining Post Op Education Discharge Planning Hot or Cold Pack Other Recommendations and Next Treatment gait training as joe Focus family training for gait and transfer training Recommendations To Nursing Amount of Assist Needed 1 Person Assist Discharge Recommendations PT Discharge Recommendations Home with Assistance Outpatient PT
[2018-11-16 16:00] VITALS: BP 127/61; PULSE 76; RESP 18; TEMP 37.1; O2SAT 97
[2018-11-16 20:25] VITALS: BP 118/50; PULSE 85; RESP 18; TEMP 37.1
[2018-11-16 23:55] VITALS: BP 136/59; PULSE 88; RESP 20; TEMP 38.2; O2SAT 95
[2018-11-17] MEDS: HYDROCODONE/ACET 5/325 TABLET 1 TAB PO ×2 (00:40→09:44)
[2018-11-17 04:45] VITALS: BP 122/56; PULSE 80; RESP 16; TEMP 36.9; O2SAT 97
[2018-11-17] MEDS: LEVOTHYROXINE 75 MCG TABLET PO (06:39)
[2018-11-17] MEDS: PANTOPRAZOLE 20 MG TABLET PO (06:39)
[2018-11-17] MEDS: LEVOTHYROXINE 100 MCG TABLET PO (06:39)
--- NOTE | 2018-11-17 08:09 | PM.DS.1 ---
History of Present Illness Date Patient Seen: 11/17/18 Time Patient Seen: 08:09 Chief complaint: Total Hip Arthroplasty [id number] Narrative: Hospital day 4, postop day 3 following left total hip arthroplasty by Dr. Villela. Patient remained stable postoperatively. Patient states she progressed well with physical therapy yesterday and feels much better. She is ready to go home today. Her daughter has been with her during her PT sessions and is comfortable with working with her. She does not feel that she needs home health PT. She is scheduled to [facility] in [place] early next week. Discharge Providers Date of admission: 11/14/18 09:50 Primary care physician: Floresita Hatfield MD Consults: 11/14/18 14:31 Consult to Discharge Planning Routine Comment: Consult to Physical Therapy Evaluate & Treat Comment: Physician Instructions: post op SHEA protocol Consult to Respiratory Therapy Evaluate & Treat Comment: Physician Instructions: Evaluate and treat 11/14/18 16:05 Consult to Dietitian, Adult Routine Comment: Reason For Exam: assessed at high risk Discharge provider: Onur Urban PA-C Discharge Date: 11/17/18 Summary Discharge Diagnosis: Status post left total hip arthroplasty. Hospital Course: Patient brought to hospital on 11/14/2018 for above noted surgery. She remained stable postoperatively. Gradually progressed with ambulation activity with PT. Ready for discharge home on postop day 3. Status at Discharge Cognitive/behavioral status at discharge: Alert, oriented no acute distress. Functional status at discharge: uses cane/walker Overall status at discharge: patient is progressing back to baseline Time Spent with Patient Less than 30 minutes Exam Vital Signs (past 8 hours): - 11/17/18 04:45 Temperature 98.4 F Pulse Rate 80 Respiratory Rate 16 Blood Pressure 122/56 L Pulse Oximetry 97 Oxygen Delivery Method Room Air Oxygen Flow Rate 0 Narrative Exam Narrative: Legs. CovRsite dressing to left hip incision is dry without drainage or inflammation. No calf pain or swelling. Pulses symmetrical. Objective Labs Result Diagrams: 11/15/18 06:25 Discharge Plan Discharge Plan Patient Disposition: Home Discharge comment: Discharge home today after cleared by PT. Total hip precautions x6 weeks postop. Patient has prescriptions at home for oxycodone, Vistaril, meloxicam. Use Lovenox until gone. Discharge Med Rec/Prescriptions Prescriptions: New enoxaparin [Lovenox] 40 mg/0.4 mL Syringe 40 mg subcut DAILY Qty: 7 RF: 0 Continued levothyroxine 175 mcg Tablet 175 mcg PO DAILY RF: 0 diltiazem HCl [Cartia XT] 180 mg Capsule,Extended Release 24hr 180 mg PO DAILY RF: 0 atenolol 25 mg Tablet 25 mg PO DAILY RF: 0 aspirin 81 mg Tablet,Delayed Release (Dr/Ec) 81 mg PO DAILY RF: 0 lisinopril 10 mg Tablet 10 mg PO DAILY RF: 0 omeprazole 20 mg Tablet,Delayed Release (Dr/Ec) 20 mg PO DAILY RF: 0 Follow up/Referrals: Floresita Hatfield MD [Primary Care Provider] - Provider Discharge Instructions Diet: Diet as Tolerated Activity: Ambulate as tolerated. Total hip precautions x6 weeks postop. Cold/Heat Therapy: Cold pack to left hip as needed. Skin/Wound/Dressing Care Report to your healthcare provider any signs of infection, such as:: chills, fever, night sweats, increased pain, unusual drainage and unusual redness Dressing: Keep CovRsite dressing in place until postop visit. Visit Report/Discharge Packet Instructions: DI for Hip Replacement Discharge Data Primary Care Provider: Floresita Hatfield Attending Provider: Thom Villela Admit Date/Time: 11/14/18 09:50 Quality VTE Deep Vein Thrombosis/Pulmonary Embolism Present on Admission: No
[2018-11-17 08:30] VITALS: BP 128/60; PULSE 70; RESP 16; TEMP 36.6; O2SAT 97
--- NOTE | 2018-11-17 09:25 | CM.DPC ---
DCP Cont: Patient is to be discharged home today. Spoke to Jesu Lucio, and he stated that patient decided not to have [facility], and will go ahead and do her scheduled outpatient physical therapy. Stated, she is feeling better today, and should be able to make her outpatient physical therapy. P: Patient is to be discharged home today. Will pursue outpatient physical therapy. Has support of daughter, Lexy. Amber Bowling RN/Tobacco Drier Operator
[2018-11-17] MEDS: ASPIRIN EC 81 MG TABLET PO (09:28)
[2018-11-17] MEDS: LISINOPRIL 10 MG TABLET PO (09:28)
[2018-11-17] MEDS: dilTIAZem CD 180 MG CAP PO (09:28)
[2018-11-17] MEDS: ATENOLOL 25 MG TABLET PO (09:28)
[2018-11-17] MEDS: hydrOXYzine pamoate 25 MG CAPSULE PO (09:46)
--- NOTE | 2018-11-17 10:55 | PT.IPTN ---
Current Diagnoses Unilateral primary osteoarthritis, left hip (11/14/18) Trochanteric bursitis, left hip (11/14/18) Surgery Performed Operation Date: 11/14/18 12:15 Actual Procedures p Total Hip Arthroplasty(Left) - Thom Villela MD Physical Therapy Treatment Note M2 PT-IP Current Condition Start: 11/14/18 16:41 Freq: NEEDED Status: Active Protocol: Document 11/14/18 16:00 HH (Rec: 11/14/18 17:18 [email or web address]) Physical Therapy Current Condition Current Condition Evaluation Date 11/14/18 Treatment Diagnosis L SEHA (post approach), difficulty in walking Onset Date 11/14/18 Precautions Posterior Hip Precautions No Hip Flexion > 90 degrees No Hip Internal Rotation No Hip Adduction Weight Bearing Status Weight Bearing Status Weight Bear as Tolerated M3 PT-IP Subjective Start: 11/14/18 16:41 Freq: NEEDED Status: Active Protocol: Document 11/17/18 10:55 GGD (Rec: 11/17/18 11:20 GGD [id number]) Subjective Physical Therapy Visit Type Type Treatment Note Visit Start Time 10:30 Visit Stop Time 10:55 Total Visit Minutes 25 Number of MANAGER EMPLOYMENT Visits 2 Physical Therapy Visit Comments Patient Comments Pt states she ready to go home . Therapy Pain Assessment Pain When Pain Assessed At Rest Pain Present Pain Present Denied Pain M4 PT-IP Mobility and Gait Start: 11/14/18 16:41 Freq: NEEDED Status: Active Protocol: Document 11/17/18 10:55 GGD (Rec: 11/17/18 11:20 GGD [id number]) PT-Bed Mobility Assessment Supine to Sit Supine to Sit Standby Assistance Head of Bed Elevated Bedrails Scooting Scooting to Edge of Bed Standby Assistance PT-Transfer Assessment Sit to and From Stand Sit to and from Stand Contact Guard Assistance Use of Upper Extremities Equipment Transfer Assistive Device Gait Belt Front Wheeled Walker Orthotic/Prosthetic Devices or Brace: No Transfers Transfer Destination Bed Transfer Ability Level of Assist Contact Guard Assistance Use of Upper Extremities Gait Assessment Gait Gait Assistance Required: Contact Guard Assist Distance (Feet) 220 Able to Maintain Weight Bearing Status Yes During Gait Assistive Devices Assistive Device Gait Belt Front Wheeled Walker Gait Deviations General Gait Pattern Antalgic Decreased Stride Length Decreased Feet Clearance Factors Limiting Gait Function Factors Limiting Gait Function Decreased Activity Tolerance Decreased Sensation Decreased Strength Limited Range of Motion Pain Poor Balance Poor Safety Awareness M5 PT-IP Objective Assessments Start: 11/14/18 16:41 Freq: NEEDED Status: Active Protocol: Document 11/14/18 16:00 (Rec: 11/14/18 17:18 [email or web address]) Orientation Orientation/Cognition Level of Alertness Alert Orientation Name Age Birthday Month Date Year Day of Week Place Situation Language Function Ability No Deficits Noted Safety Awareness Understands Safety Issues Memory Description No Deficits Noted Gross Range of Motion Upper Extremity ROM Assessment Within Functional Limits Lower Extremity ROM Assessment Left Impaired Strength Upper Extremity Strength Assessment Within Functional Limits Lower Extremity Strength Assessment Left Impaired Comments Strength Comments 3/5 for L hip strength grossly Coordination Assessment Gross Coordination Gross Coordination WNL Sensation Assessment Sensation Gross Sensation Left LE Impaired Light Touch Impaired Proprioception (Position) Impaired Sensation Description Numbness Comments Sensation Comments numbness at L knee Muscle Tone Muscle Tone WNL Yes M6 PT-IP Treatment Start: 11/14/18 16:41 Freq: NEEDED Status: Active Protocol: Document 11/17/18 10:55 GGD (Rec: 11/17/18 11:20 GGD [id number]) Physical Therapy Treatment Exercises Exercises Gluteal Sets Quad Sets Heel Slides Supine Hip Abduction Education Education Provided Precautions M7 PT-IP Assessment and Plan Start: 11/14/18 16:41 Freq: NEEDED Status: Active Protocol: Document 11/17/18 10:55 GGD (Rec: 11/17/18 11:20 GGD [id number]) PT Summary Assessment and Plan Summary Assessment Summary Pt improving with mobility. She was able to progress gait pattern with decrease cues. She needed less assist for bed mobility. Pt safe for d/C home when medically stable. Frequency of Treatment Frequency Of Treatment Twice a Day Treatment Plan Physical Therapy Treatment Plan Bed Mobility Training Transfer Training Gait Training Therapeutic Exercise Balance Retraining Post Op Education Discharge Planning Hot or Cold Pack Other Recommendations and Next Treatment gait training as joe Focus family training for gait and transfer training Recommendations To Nursing Amount of Assist Needed 1 Person Assist Discharge Recommendations PT Discharge Recommendations Home with Assistance Outpatient PT
[2018-11-17] MEDS: ENOXAPARIN 40 MG/0.4 ML SYRINGE SUBCUT (11:30)
== END 2018-11-17 12:44 | disposition home or self-care (01) | DRG 470 ==
PROVIDERS: Admitting Provider Orthopaedic Surgery; PCP Family Medicine; Visit Provider Orthopaedic Surgery
PROC: 0SRB0JZ Replacement of Left Hip Joint with Synthetic Substitute, Open Approach (ICD-10-PCS; CPT 27130; principal; 2018-11-14 12:15)
DX: M16.12 Unilateral primary osteoarthritis, left hip (principal); I47.1 Supraventricular tachycardia; E89.0 Postprocedural hypothyroidism; I10 Essential (primary) hypertension; K21.9 Gastro-esophageal reflux disease without esophagitis; M70.62 Trochanteric bursitis, left hip
CPT/HCPCS: 36415; 72170; 85014; 85018; 97110; 97116; 97161; 97530; C1776; J0690; J1650; J2250; J2704; J3010